=== PATIENT | female | born 1950 | race Caucasian/White ===

== ENCOUNTER 2017-04-25 07:20 | Outpatient (CLI) | payer BC ==
--- NOTE | 2017-04-25 09:25 | MMO ---
BILATERAL MAMMOGRAMS: Comparison is made to prior studies dated 2014, 2015, and 2016.. Interpreted with computer-aided detection. Both breasts show fatty replacement. There is mild asymmetric parenchymal density in the left retro areolar region which is stable. No suspicious finding or interval change. Recommend 1-year followu p. IMPRESSION: BIRADS 1: Negative Routine annual screening mammography (for women over age 40) POS: [facility]
== END 2017-04-25 07:21 | disposition home or self-care (01) ==
LOC: SCSMAMMO 07:20
PROVIDERS: ATTEND Family Medicine
DX: Z12.31 Encounter for screening mammogram for malignant neoplasm of breast (principal)
CPT/HCPCS: 77067; G0202

== ENCOUNTER 2018-04-30 09:43 | Outpatient (CLI) | payer BC, MEDICARE ==
--- NOTE | 2018-04-30 13:05 | BD ---
BONE DENSITOMETRY: Indication: 67-year-old female for post-menopausal osteoporosis screening. Lumbar Spine: BMD (g/cm2) L1 0.929 T-Score: -0.6 L2 1.020 T-Score: -0.1 L3 1.045 T-Score: -0.4 L4 1.094 T-Score: -1.1 L1-L4 0.984 T-Score: -0.6 Femoral Neck: 0.714 T-Score: -1.2 Total Femur: 0.923 T-Score: -0.2 Impression: 1. Bone mineral density of the lumbar spine within normal range. 2. Bone mineral density of the femoral neck consistent with osteopenia. 3. 10-year fracture risk: Major osteoporotic fracture 10%; hip fracture 1.2%. POS: [facility]
== END 2018-04-30 09:44 | disposition home or self-care (01) ==
LOC: BICMAMMO 09:43
PROVIDERS: ATTEND Family Medicine
DX: Z12.31 Encounter for screening mammogram for malignant neoplasm of breast (principal); Z13.820 Encounter for screening for osteoporosis; M85.859 Other specified disorders of bone density and structure, unspecified thigh; Z78.0 Asymptomatic menopausal state
CPT/HCPCS: 77063; 77067; 77080

== ENCOUNTER 2018-05-20 08:30 | Emergency (ER) | payer BC, MEDICARE ==
--- NOTE | 2018-05-20 09:04 | CT ---
CT BRAIN WITHOUT CONTRAST: Date: 05/20/18 HISTORY: Headache, migraine. FINDINGS: No evidence of infarct, hemorrhage, midline shift, or abnormal extra-axial fluid collections are seen . The ventricular size is normal and the basilar cisterns are patent. The bony calvarium is intact. T he visualized paranasal sinuses and mastoid air cells are well aerated. IMPRESSION: No CT evidence of acute intracranial process. POS: [facility]
== END 2018-05-20 09:14 | disposition home or self-care (01) ==
LOC: SCSER 08:30
DX: G43.809 Other migraine, not intractable, without status migrainosus (principal); E03.9 Hypothyroidism, unspecified; E78.5 Hyperlipidemia, unspecified; Z79.899 Other long term (current) drug therapy
CPT/HCPCS: 70450

== ENCOUNTER 2020-05-21 08:53 | Outpatient (CLI) | payer BC ==
--- NOTE | 2020-04-21 09:42 | BD ---
DEXA bone density scan: 04/21/2020 COMPARISON: 04/30/2018. HISTORY: Postmenopausal female undergoing screening for osteoporosis. FINDINGS: Lumbar Spine BMD (g/cm2) L1 0.967 T-Score -0.2 (previous -0.6) L2 1.050 T-Score 0.2 (previous -0.1) L3 1.077 T-Score -0.1 (previous -0.4) L4 0.972 T-Score -0.8 (previous -1.1) L1-L4 1.016 T-Score -0.3 (previous -0.6) Femoral Neck 0.777 T-Score -0.7 (previous -1.2) Total Femur 1.013 T-Score 0.6 (previous -0.2) The FRAX-WHO fracture risk assessment tool is not reported as all T-Scores are at or above -1.0. IMPRESSION: Normal bone mineral density examination. Transcribed Date/Time: 04/21/2020 11:16 AM
--- NOTE | 2020-05-21 10:53 | MMO ---
Bilateral MAMMO Bilat Screen [facility]. CLINICAL HISTORY: Patient is 69 years old and is seen for screening. The patient has no family history of breast cancer. The patient has no personal history of cancer. VIEWS: The views performed were: bilateral craniocaudal with tomosynthesis and bilateral mediolateral oblique with tomosynthesis. FILMS COMPARED: The present examination has been compared to prior imaging studies performed at [facility] on 05/19/2019, and at [facility] on 04/30/2018. This study has been interpreted with the assistance of computer-aided detection. MAMMOGRAM FINDINGS: The breasts are almost entirely fat. Finding 1: There are stable benign appearing calcifications seen in both breasts. Finding 2: There is a stable focal asymmetry seen in the left breast. There are no suspicious masses, suspicious calcifications, or new areas of architectural distortion. IMPRESSION: THERE IS NO MAMMOGRAPHIC EVIDENCE OF MALIGNANCY. A ROUTINE FOLLOW-UP MAMMOGRAM IN 1 YEAR IS RECOMMENDED. THE RESULTS OF THIS EXAM WERE SENT TO THE PATIENT. ACR BI-RADS Category 2 - Benign finding MAMMOGRAPHY NOTE: 1. A negative mammogram report should not delay a biopsy if a dominant of clinically suspicious mass is present. 2. Approximately 10% to 15% of breast cancers are not detected by mammography. 3. Adenosis and dense breasts may obscure an underlying neoplasm. Reported by: PALMA CALERO MD Electonically Signed: [id number]
== END 2020-05-21 08:54 | disposition home or self-care (01) ==
LOC: BICMAMMO 08:53
PROVIDERS: ATTEND Family Medicine
DX: Z12.31 Encounter for screening mammogram for malignant neoplasm of breast (principal); Z13.820 Encounter for screening for osteoporosis; Z78.0 Asymptomatic menopausal state
CPT/HCPCS: 77063; 77067; 77080

== ENCOUNTER 2023-06-19 08:57 | Outpatient (CLI) | payer MEDICARE, BC | END 2023-06-19 08:58 | disposition home or self-care (01) | LOC: SCSMRI 08:57 | PROVIDERS: ATTEND Orthopaedic Surgery | DX: M23.92 Unspecified internal derangement of left knee (principal); M94.8X6 Other specified disorders of cartilage, lower leg; M25.462 Effusion, left knee; M71.22 Synovial cyst of popliteal space [Baker], left knee ==

== ENCOUNTER 2025-02-02 06:55 | Day surgery (SDC) | payer MEDICARE ==
[2025-01-29 13:53] VITALS: BMI 27.1
[2025-02-02] MEDS ORDERED: Lidocaine 1% PF 5 ML VIAL ONE (08:25)
[2025-02-02] MEDS ORDERED: fentaNYL PF 100 MCG/2 ML SYRINGE ONE (08:25)
[2025-02-02] MEDS ORDERED: PROPOFOL 20 ML ONE (08:25)
[2025-02-02] MEDS ORDERED: Ondansetron PF 4 MG/2 ML Vial ONE (08:26)
[2025-02-02] MEDS ORDERED: CEFAZOLIN 2 GM VIAL ONE (09:57)
== END 2025-02-02 12:23 | disposition home or self-care (01) ==
LOC: SDC 06:55
PROVIDERS: ATTEND Orthopaedic Surgery
PROC: 0LB70ZZ Excision of Right Hand Tendon, Open Approach (ICD-10-PCS; principal; 2025-02-02)
PROC: 0PBT0ZZ Excision of Right Finger Phalanx, Open Approach (ICD-10-PCS; 2025-02-02)
DX: M67.843 Other specified disorders of tendon, right hand (principal); Z88.0 Allergy status to penicillin; Z88.1 Allergy status to other antibiotic agents; Z88.8 Allergy status to other drugs, medicaments and biological substances
CPT/HCPCS: 26160; 26236; A6223; J0665; J2405; J2704; 88304